=== PATIENT | female | born 1945 | race Hispanic/Latino ===

== ENCOUNTER 2016-11-16 10:30 | Emergency (ER) | payer BC, MEDICARE ==
[2016-11-16 11:12] LABS: Basophils % (Auto) 1.1 % (0.0-1.8); Eosinophils % (Auto) 5.3 % (0.0-4.3); Hematocrit 37.1 % (30.3-42.9); Hemoglobin 12.4 gm/dl (10.1-14.3); Mean Corpuscular HGB Conc 34 % (30-34); Mean Corpuscular Hemoglobin 31 pg (28-32); Mean Corpuscular Volume 91 fl (79-97); Platelet Count 257 K/mm3 (140-440); Red Blood Count 4.08 M/mm3 (3.65-5.03); Red Cell Distribution Width 13.4 % (13.2-15.2)
[2016-11-16 11:33] LABS: Anion Gap 15 mmol/L; Blood Urea Nitrogen 13 mg/dL (7-17); Calcium 9.6 mg/dL (8.4-10.2); Carbon Dioxide 28 mmol/L (22-30); Chloride 99.1 mmol/L (98-107); Glucose 126 mg/dL (65-100); Potassium 4.2 mmol/L (3.6-5.0); Sodium 138 mmol/L (137-145)
--- NOTE | 2016-11-16 12:46 | XRay Report ---
CHEST 2 VIEWS INDICATION: Shortness of breath. COMPARISON: None similar. FINDINGS: PA and lateral chest radiographs demonstrate normal cardiomediastinal silhouette. Clear lungs. Few degenerative changes, including mild thoracic levoscoliosis. CONCLUSION: No acute disease in the chest. Thank you for the opportunity to participate in this patient's care.
--- NOTE | 2016-11-16 14:17 | Emergency Department Report ---
ED Shortness of Breath HPI - General Chief Complaint: Dyspnea/Respdistress Stated Complaint: CARLO Time Seen by Provider: 11/16/16 11:55 Source: EMS Mode of arrival: Stretcher Limitations: No Limitations - History of Present Illness Initial Comments: 71 year old female with a past medical history of hypothyroidism and elevated cholesterol presents to the hospital complaints of sudden onset shortness of breath. Patient was outside playing with her dogs for about an hour and a half. She felt fine until she sat down to eat her breakfast and she has had onset of shortness of breath and shaking of her hands. Patient denied any chest pain, nausea, vomiting, or diaphoresis episode. Symptoms were constant and gradually improved after arrival to the ED. Patient states she feels fine now. She denies any recent cough, fever, calf tenderness, edema, recent travel , history of PE/DVT. Last stress test was within 5 years. Patient was scheduled to see Dr. Lowery vascular surgeries for possible Raynaud's syndrome since her fingers turning white at times. PMD: [facility] - Related Data Home Medications Medication Instructions Recorded Confirmed Last Taken Levothyroxine [Synthroid] 75 mcg PO QAM 11/16/16 11/16/16 11/16/16 Simvastatin [Zocor TAB] 20 mg PO DAILY 11/16/16 11/16/16 11/16/16 Allergies Allergy/AdvReac Type Severity Reaction Status Date / Time No Known Allergies Allergy Unverified 10/07/13 19:22 ED Review of Systems ROS: Stated complaint: CARLO Other details as noted in HPI Comment: All other systems reviewed and negative Other: Constitutional: No fevers chills Eyes: No eye pain visual changes ENT: No ear pain or throat pain Neck: Denies pain Respiratory: Denies cough wheezing Cardiovascular: Denies chest pain, palpitations, syncope GI: Denies abdominal pain, nausea, vomiting, diarrhea : Denies dysuria Musculoskeletal: Denies back pain Skin: Denies rash, lesions, erythema Neurologic: Denies headache, numbness, weakness Psychiatric: Denies suicidal ideation, hallucinations ED Past Medical Hx - Past Medical History Hx Hypertension: Yes Hx Diabetes: No Additional medical history: Hypothyroid - Surgical History Hx Cholecystectomy: Yes - Social History Smoking Status: Never Smoker - Medications Home Medications: Home Medications Medication Instructions Recorded Confirmed Last Taken Type Levothyroxine [Synthroid] 75 mcg PO QAM 11/16/16 11/16/16 11/16/16 History Simvastatin [Zocor TAB] 20 mg PO DAILY 11/16/16 11/16/16 11/16/16 History ED Physical Exam - General Limitations: No Limitations - Other Other exam information: General: No limitations, patient is alert in no acute distress Head exam: Atraumatic, normocephalic Eyes exam: Normal appearance ENT: Moist mucous membrane, normal oropharynx Neck exam: Normal inspection, full range of motion Respiratory exam: Clear to auscultation bilateral, no wheezes, rales, crackles Cardiovascular: Normal rate and rhythm, normal heart sounds Abdomen: Soft, nondistended, and nontender, with normal bowel sounds, no rebound, or guarding Extremity: Full range of motion normal inspection no deformity, no calf tenderness or edema Back: Normal Inspection, full range of motion, no tenderness Neurologic: Alert, oriented x3, cranial nerves intact, no motor or sensory deficit Psychiatric: normal affect, normal mood Skin: Warm, dry, intact ED Course Vital Signs 11/16/16 11/16/16 11/16/16 11:01 11:31 12:00 Pulse Rate 65 64 Respiratory 17 18 16 Rate Blood Pressure 132/67 O2 Sat by Pulse 99 99 Oximetry 11/16/16 11/16/16 11/16/16 12:31 13:01 13:31 Pulse Rate 66 67 Respiratory 20 12 Rate Blood Pressure 132/67 132/67 132/67 O2 Sat by Pulse 98 99 99 Oximetry 11/16/16 11/16/16 14:17 14:31 Pulse Rate Respiratory Rate Blood Pressure 132/67 139/76 O2 Sat by Pulse 99 97 Oximetry - Reevaluation(s) Reevaluation #1: 11/16/16 15:27 Patient continued to be asymptomatic in the ED ED Medical Decision Making - Lab Data Result diagrams: 11/16/16 10:56 11/16/16 10:56 Lab Results 11/16/16 11/16/16 11/16/16 Range/Units 10:56 10:56 12:11 WBC 8.0 (4.5-11.0) K/mm3 RBC 4.08 (3.65-5.03) M/mm3 Hgb 12.4 (10.1-14.3) gm/dl Hct 37.1 (30.3-42.9) % MCV 91 (79-97) fl MCH 31 (28-32) pg MCHC 34 (30-34) % RDW 13.4 (13.2-15.2) % Plt Count 257 (140-440) K/mm3 Lymph % (Auto) 31.9 (13.4-35.0) % Lea % (Auto) 7.5 H (0.0-7.3) % Eos % (Auto) 5.3 H (0.0-4.3) % Baso % (Auto) 1.1 (0.0-1.8) % Lymph # 2.5 (1.2-5.4) K/mm3 Lea # 0.6 (0.0-0.8) K/mm3 Eos # 0.4 (0.0-0.4) K/mm3 Baso # 0.1 (0.0-0.1) K/mm3 Seg Neutrophils % 54.2 (40.0-70.0) % Seg Neutrophils # 4.3 (1.8-7.7) K/mm3 D-Dimer 284.81 H (0-234) ng/mlDDU Sodium 138 (137-145) mmol/L Potassium 4.2 (3.6-5.0) mmol/L Chloride 99.1 (98-107) mmol/L Carbon Dioxide 28 (22-30) mmol/L Anion Gap 15 mmol/L BUN 13 (7-17) mg/dL Creatinine 0.5 L (0.7-1.2) mg/dL Estimated GFR > 60 ml/min BUN/Creatinine Ratio 26.00 % Glucose 126 H (65-100) mg/dL Calcium 9.6 (8.4-10.2) mg/dL Troponin T < 0.010 (0.00-0.029) ng/mL TSH (0.270-4.200) mlU/mL Free T4 (0.76-1.46) ng/dL 11/16/16 11/16/16 Range/Units 12:11 13:32 WBC (4.5-11.0) K/mm3 RBC (3.65-5.03) M/mm3 Hgb (10.1-14.3) gm/dl Hct (30.3-42.9) % MCV (79-97) fl MCH (28-32) pg MCHC (30-34) % RDW (13.2-15.2) % Plt Count (140-440) K/mm3 Lymph % (Auto) (13.4-35.0) % Lea % (Auto) (0.0-7.3) % Eos % (Auto) (0.0-4.3) % Baso % (Auto) (0.0-1.8) % Lymph # (1.2-5.4) K/mm3 Lea # (0.0-0.8) K/mm3 Eos # (0.0-0.4) K/mm3 Baso # (0.0-0.1) K/mm3 Seg Neutrophils % (40.0-70.0) % Seg Neutrophils # (1.8-7.7) K/mm3 D-Dimer (0-234) ng/mlDDU Sodium (137-145) mmol/L Potassium (3.6-5.0) mmol/L Chloride (98-107) mmol/L Carbon Dioxide (22-30) mmol/L Anion Gap mmol/L BUN (7-17) mg/dL Creatinine (0.7-1.2) mg/dL Estimated GFR ml/min BUN/Creatinine Ratio % Glucose (65-100) mg/dL Calcium (8.4-10.2) mg/dL Troponin T < 0.010 (0.00-0.029) ng/mL TSH 1.410 (0.270-4.200) mlU/mL Free T4 1.20 (0.76-1.46) ng/dL - EKG Data -: EKG Interpreted by Me (sinus rhythm rate 63, no stemi) - Radiology Data Radiology results: image reviewed (CT chest IV contrast: No PE. Atherosclerosis to the aortic arch. Small nonspecific history right lung base nodular density) - Medical Decision Making Patient offered admission to the hospital given her age and respiratory symptoms however, I think the overall patient's symptoms are atypical. EKG normal, cardiac enzymes negative 2, and the patient did not have any chest pain. Presenting symptom was shortness of breath and although she has a mildly elevated d-dimer her CT angiogram is negative. Patient does have arthrosclerosis of the aorta. She'll be encouraged to follow-up since she declines admission at this time. Explained the risks of impending heart attack which could lead to disability and . Patient states she prefers to go home. - Differential Diagnosis PE, anxiety, unstable angina, arrhythmia, pulmonary edema Critical Care Time: No Critical care attestation.: If time is entered above; I have spent that time in minutes in the direct care of this critically ill patient, excluding procedure time. ED Disposition Clinical Impression: Dyspnea, Atherosclerosis of aorta, Lung nodule < 6cm on CT Disposition: DISCHARGED TO HOME OR SELFCARE Is pt being admited?: No Does the pt Need Aspirin: No Condition: Stable Instructions: Dyspnea (ED) Additional Instructions: The cause of your shortness of breath episode was unidentified at this time. This could be due to anxiety. Heart disease was not ruled out today and therefore admission was recommended. You have declined admission at this time. Please return immediately if symptoms worsen. Your cat scan also shows a nonspecific nodule that needs outpatient follow-up and monitoring. You have been provided a copy of the CAT scan for outpatient follow-up. Referrals: PRIMARY CAREMD [Primary Care Provider] - 2-3 Days Time of Disposition: 15:31
[2016-11-16 14:40] VITALS: BP 139/76
--- NOTE | 2016-11-16 14:47 | Cat Scan Report ---
CTA CHEST INDICATION: Shortness of breath, d-dimer elevation. COMPARISON: 10/02/2012 FINDINGS: Chest CTA performed following intravenous administration of 100 cc of Omnipaque 350. Rotational MIP's also obtained. Normal heart size. No effusions. No aortic aneurysm, dissection or suspicious pulmonary arterial filling defects. Aortic arch atherosclerotic changes with calcifications and mild ectasia distally to approximately 3.1 cm caliber as on axial image 69, series 2 is unchanged. Proximal descending aortic caliber is 2.5 cm, axial image 92. No size significant adenopathy. Normal airway. Unremarkable thyroid. Well-expanded lungs with mild increased AP chest diameter/COPD. Mild biapical and left lower lobe scarring. Small 6 mm extreme right lung base nodular pleural based density as on axial image 109, series 2 is nonspecific, possibly atelectasis or scarring. Nonspecific distal esophageal wall prominence/thickening, not excluded for gastroesophageal reflux and/or hiatal hernia, amongst others. Images through included upper abdomen reveal no significant abnormality. Few mid to lower thoracic spine degenerative spurring and disc narrowing. CONCLUSION: No CT evidence of pulmonary embolism with few other incidental findings, including aortic arch atherosclerotic changes and a small nonspecific extreme right lung base nodular density, as above. Thank you for the opportunity to participate in this patient's care.
== END 2016-11-16 16:24 | disposition home or self-care (01) ==
LOC: ED 10:30
DX: R06.09 Other forms of dyspnea (principal); I70.0 Atherosclerosis of aorta; R91.8 Other nonspecific abnormal finding of lung field; I10 Essential (primary) hypertension; E05.90 Thyrotoxicosis, unspecified without thyrotoxic crisis or storm; Z90.49 Acquired absence of other specified parts of digestive tract
CPT/HCPCS: 36415; 71020; 71275; 80048; 84439; 84443; 84484; 85025; 85379; 93005; 93010; 99285; Q9967

== ENCOUNTER 2017-04-19 16:57 | Emergency (ER) | payer MEDICARE ==
--- NOTE | 2017-04-19 17:05 | Emergency Department Report ---
Stated Complaint: CARLO Time Seen by Provider: 04/19/17 17:02 - HPI History of Present Illness: Pt states 1 hr captain cannery tender, she felt sob and dizzy. PT states she has felt this way once before. - ROS Review of Systems: + dizziness + nausea - vomiting - Exam Physical Exam: PT is alert, appropriate, no acute resp distress steady gait gcs 15 MSE screening note: Focused history and physical exam performed. Due to findings the following was ordered: ekg, lab, xr ED Disposition for MSE Condition: Stable
[2017-04-19 20:46] LABS: Eosinophils % (Auto) 2.4 % (0.0-4.3); Hematocrit 36.1 % (30.3-42.9); Hemoglobin 12.4 gm/dl (10.1-14.3); Mean Corpuscular HGB Conc 34 % (30-34); Mean Corpuscular Hemoglobin 31 pg (28-32); Mean Corpuscular Volume 90 fl (79-97); Platelet Count 288 K/mm3 (140-440); Red Blood Count 4.01 M/mm3 (3.65-5.03); Red Cell Distribution Width 13.4 % (13.2-15.2); White Blood Count 9.5 K/mm3 (4.5-11.0)
[2017-04-19 20:56] LABS: INR 0.9 (0.87-1.13); Partial Thromboplastin Time 29.2 Sec. (24.2-36.6)
[2017-04-19 21:07] LABS: Alanine Aminotransferase 21 units/L (7-56); Albumin 4.2 g/dL (3.9-5); Albumin/Globulin Ratio 1.2 %; Alkaline Phosphatase 94 units/L (35-129); Anion Gap 20 mmol/L; BUN/Creatinine Ratio 17; Blood Urea Nitrogen 10 mg/dL (7-17); Calcium 8.9 mg/dL (8.4-10.2); Carbon Dioxide 23 mmol/L (22-30); Glucose 112 mg/dL (65-100); Sodium 132 mmol/L (137-145); Total Protein 7.7 g/dL (6.3-8.2)
[2017-04-20] MEDS ORDERED: NACL 0.9% 250ML 250 ML IV ONE (00:20)
--- NOTE | 2017-04-20 00:24 | Emergency Department Report ---
ED General Adult HPI - General Chief complaint: Chest Pain Stated complaint: CARLO Time Seen by Provider: 04/19/17 17:02 Source: patient, RN notes reviewed, old records reviewed Mode of arrival: Ambulatory Limitations: No Limitations - History of Present Illness Initial comments: This is a 71-year-old female, the patient is previously unknown to this provider , patient reports a past medical history of hypertension, hypothyroidism, "anxiety." Patient is brought to the hospital by EMS for evaluation of shortness of breath. Patient reports that she has been having shortness of breath for over a year. Her shortness of breath is not any new, worsening or different today. She reports that her friend contacted 911 "because he didn't like the way that was breathing." There is no leg pain, there is no leg swelling, no recent trips greater than 4 hours, no recent hospital admissions. Patient does report that she has "major anxiety." Patient seen in this hospital November 2016 for similar symptoms, had a CT scan of the chest which suggested COPD/emphysema. The patient reports that if her friend had not contacted 911, she would not have sought emergent medical attention. -: Gradual, month(s) Consistency: intermittent Improves with: none Worsens with: none Associated Symptoms: shortness of breath. denies: confusion, chest pain, cough , loss of appetite, malaise, nausea/vomiting - Related Data Home Medications Medication Instructions Recorded Confirmed Last Taken Levothyroxine [Synthroid] 75 mcg PO QAM 11/16/16 11/16/16 11/16/16 Simvastatin [Zocor TAB] 20 mg PO DAILY 11/16/16 11/16/16 11/16/16 Allergies Allergy/AdvReac Type Severity Reaction Status Date / Time No Known Allergies Allergy Unverified 10/07/13 19:22 ED Review of Systems ROS: Stated complaint: CARLO Other details as noted in HPI Constitutional: malaise. denies: fever, weakness Eyes: denies: vision change Respiratory: shortness of breath Cardiovascular: denies: chest pain Gastrointestinal: abdominal pain Genitourinary: denies: dysuria Musculoskeletal: denies: back pain Skin: denies: lesions Neurological: weakness Psychiatric: anxiety. denies: auditory hallucinations, visual hallucinations, homicidal thoughts, suicidal thoughts ED Past Medical Hx - Past Medical History Previous Medical History?: Yes Hx Hypertension: Yes Hx Diabetes: No Additional medical history: Hypothyroid - Surgical History Past Surgical History?: Yes Hx Cholecystectomy: Yes - Social History Smoking Status: Never Smoker Substance Use Type: None - Medications Home Medications: Home Medications Medication Instructions Recorded Confirmed Last Taken Type Levothyroxine [Synthroid] 75 mcg PO QAM 11/16/16 11/16/16 11/16/16 History Simvastatin [Zocor TAB] 20 mg PO DAILY 11/16/16 11/16/16 11/16/16 History ED Physical Exam - General Limitations: No Limitations General appearance: alert, anxious - Head Head exam: Present: atraumatic, normocephalic - Eye Eye exam: Present: normal appearance, EOMI. Absent: nystagmus - ENT ENT exam: Present: normal exam, normal orophraynx, mucous membranes moist, normal external ear exam - Neck Neck exam: Present: normal inspection - Respiratory Respiratory exam: Present: normal lung sounds bilaterally. Absent: respiratory distress, wheezes, rales, rhonchi, stridor, chest wall tenderness, accessory muscle use, decreased breath sounds, prolonged expiratory - Cardiovascular Cardiovascular Exam: Present: regular rate, normal rhythm, systolic murmur ( there is a 2/6 systolic murmur, appreciated best in the right and left second intercostal space. It does not radiate to the carotids). Absent: bradycardia, diastolic murmur, rubs, gallop - GI/Abdominal GI/Abdominal exam: Present: soft, normal bowel sounds. Absent: distended, tenderness, guarding, rebound, rigid, pulsatile mass - Extremities Exam Extremities exam: Present: normal inspection, full ROM, normal capillary refill. Absent: pedal edema, joint swelling, calf tenderness - Back Exam Back exam: Present: normal inspection, full ROM, other (2+ pulses noted in the bilateral upper and lower extremities.). Absent: tenderness, CVA tenderness (R) , CVA tenderness (L), muscle spasm, paraspinal tenderness, vertebral tenderness - Neurological Exam Neurological exam: Present: alert, oriented X3, normal gait, other (Extraocular movements intact. Tongue midline. No facial droop. Facial sensation intact to light touch in the V1, V2, V3 distribution bilaterally. 5 and 5 strength in 4 extremities.. Sensation is intact to light touch in 4 extremities.). Absent : motor sensory deficit - Psychiatric Psychiatric exam: Present: normal affect, normal mood - Skin Skin exam: Present: warm, dry, intact, normal color. Absent: rash ED Course Vital Signs 04/19/17 04/20/17 04/20/17 17:47 01:30 02:00 Temperature 97.7 F Pulse Rate 72 62 Respiratory 22 18 20 Rate Blood Pressure 172/85 Blood Pressure 149/72 [Right] O2 Sat by Pulse 98 100 100 Oximetry - Reevaluation(s) Reevaluation #1: 04/20/17 00:52 Differential diagnosis: Emphysema, pulmonary hypertension, aortic stenosis, acute coronary syndrome, pneumonia, pulmonary embolus, anxiety, assessment and plan: 71-year-old female with 6-12 months of shortness of breath. She is afebrile, with reassuring vital signs, a GCS of 15, with an anion score of 0, is clinically sober, no pulmonary embolus or DVT risk factors , low risk by well's criteria, low risk by LOW score, low risk by heart score. I appreciate the patient's CT scan results from November 2014, chest x-ray today looks somewhat abnormal in the right hemithorax/right medial mediastinum, we'll obtain CT scan of the chest to exclude developing disease. However, I have a low probability for serious disease, and if CT scan does not demonstrate any significant disease, would discharge patient to follow up with outpatient primary care, pulmonology, and cardiology. Reevaluation #2: 04/20/17 01:39 CT scan negative for acute disease. Chronic findings noted. Vital signs stable. Patient wants to eat. She'll be discharged. ED Medical Decision Making - Lab Data Result diagrams: 04/19/17 17:26 04/19/17 17:26 - EKG Data 04/20/17 01:39 Normal sinus, 67 bpm, normal intervals, normal axis, not morphologically consistent with STEMI. - Radiology Data Radiology results: report reviewed, image reviewed interpreted by me: X-ray the chest demonstrates abnormality in the right mediastinum, may be related to artifact, CT scan of the chest pending, otherwise no acute CT scan of the chest is negative for acute disease, chronic right lower lung nodule is noted Critical care attestation.: If time is entered above; I have spent that time in minutes in the direct care of this critically ill patient, excluding procedure time. ED Disposition Clinical Impression: Dyspnea Disposition: DC-01 TO HOME OR SELFCARE Is pt being admited?: No Does the pt Need Aspirin: No Condition: Stable Instructions: Aortic Stenosis (ED), Chronic Obstructive Pulmonary Disease (ED) Additional Instructions: Continue current outpatient medications. Follow up with the lung specialist, Dr. Martinez, within the next 5-6 weeks. Follow up with either of the listed cardiology groups for the cardiac murmur (most likely aortic stenosis) within the next month. Return to the ER readily with fevers, chills, lethargy, irritability, projectile vomiting, change in mental status, confusion, inability to tolerate liquid feeds. CT scan of the chest demonstrated findings consistent with emphysema/bronchitis, and a right lower lung nodule. Make certain to follow-up with either primary care or clinic specialist for this nodule, not following up as recommended may result in an undiagnosed tumor/ cancer/malignancy. Referrals: PRIMARY CAREMD [Primary Care Provider] - 3-5 Days [facility] [Provider Group] - 3-5 Days [facility] [Provider Group] - 3-5 Days MELANIA MATTHEWS MD [Staff Physician] - 3-5 Days
[2017-04-20] MEDS ORDERED: NACL ONE (00:49)
--- NOTE | 2017-04-20 01:28 | Cat Scan Report ---
FINAL REPORT EXAM: CT ANGIO CHEST HISTORY: dyspnea TECHNIQUE: A CT angiogram was performed following intravenous injection of 100 cc of Omnipaque 350. MIP reconstructions were obtained in multiple planes. Comparison is made study of 11/16/2016. FINDINGS: There is no evidence of pulmonary embolus or pulmonary vascular congestion. The heart size is normal. There is no evidence of adenopathy. The thoracic aorta reveals mild ectasia. Pleural fluid is not seen. The lungs otherwise reveal minimal dependent atelectasis in the right lower lobe. There is a stable 6 millimeter nodule in the posterior aspect of the right lung base. There are no new nodules. In the upper abdomen there is a small hiatal hernia. At the thoracic inlet the thyroid gland appears normal. The skeletal structures reveal multilevel disc degeneration in the thoracic spine. IMPRESSION: No evidence of pulmonary embolus or pulmonary vascular congestion. Very mild dependent atelectasis in the right lower lobe with stable 6 millimeter nodule posteriorly in the right lower lobe. Small hiatal hernia.
[2017-04-20 01:31] VITALS: BP 149/72
--- NOTE | 2017-04-20 09:05 | XRay Report ---
ROUTINE CHEST, TWO VIEWS: HISTORY: Dyspnea. The trachea, heart, mediastinal contour, lung marquez and bony thorax are unremarkable. IMPRESSION: No acute cardiopulmonary process. No significant change since 11/16/16.
== END 2017-04-20 02:01 | disposition home or self-care (01) ==
LOC: ED 16:57
DX: R06.00 Dyspnea, unspecified (principal); I10 Essential (primary) hypertension; E03.9 Hypothyroidism, unspecified
CPT/HCPCS: 36415; 71020; 71275; 80053; 83880; 84484; 85025; 85610; 85730; 93005; 93010; 99285; J7050; Q9967

== ENCOUNTER 2017-04-21 22:42 | Emergency (ER) | payer MEDICARE ==
[2017-04-22 01:19] LABS: Anion Gap 20 mmol/L; BUN/Creatinine Ratio 23; Blood Urea Nitrogen 16 mg/dL (7-17); Calcium 9.2 mg/dL (8.4-10.2); Carbon Dioxide 24 mmol/L (22-30); Chloride 99.5 mmol/L (98-107); Glucose 99 mg/dL (65-100); Potassium 4.1 mmol/L (3.6-5.0); Sodium 139 mmol/L (137-145)
[2017-04-22 01:32] LABS: Basophils % (Auto) 1.2 % (0.0-1.8); Eosinophils % (Auto) 3.9 % (0.0-4.3); Hematocrit 36.1 % (30.3-42.9); Hemoglobin 12.4 gm/dl (10.1-14.3); Mean Corpuscular HGB Conc 34 % (30-34); Mean Corpuscular Hemoglobin 31 pg (28-32); Mean Corpuscular Volume 91 fl (79-97); Platelet Count 309 K/mm3 (140-440); Red Blood Count 3.99 M/mm3 (3.65-5.03); Red Cell Distribution Width 13.4 % (13.2-15.2); White Blood Count 10.4 K/mm3 (4.5-11.0)
[2017-04-22 01:42] LABS: Urine Drugs of Abuse Note Disclamer
[2017-04-22 01:58] LABS: Bacteria,Urine 1+ /HPF (Negative); Bilirubin,Urine NEG (Negative); Blood,Urine SM (Negative); Ketones,Urine NEG (Negative); Leukocyte Esterase,Urine NEG (Negative); Nitrite,Urine NEG (Negative); Protein,Urine <15 mg/dL mg/dL (Negative); Urobilinogen,Urine < 2.0 mg/dL (<2.0)
[2017-04-22 02:04] LABS: RBC,Urine < 1.0 /HPF (0.0-6.0)
[2017-04-22 08:23] VITALS: BP 159/80
--- NOTE | 2017-04-22 11:14 | Emergency Department Report ---
HPI - General Chief Complaint: Psych Time Seen by Provider: 04/22/17 11:02 - HPI HPI: Room 16 The patient is a 71-year-old female presenting with a chief complaint of anxiety. The patient states for the past month or 2 she is suffer from anxiety saying that she gets "real upset about things." Patient states "too many things were changing." The patient states she suffers from anxiety intermittently for the past month or 2. Patient denies suicidal or homicidal ideation. Patient denies auditory or visual hallucinations. When asked how she is feeling currently patient replies "I'm fine." Location: Mental state Duration: Intermittent 1-2 months Quality: Anxiety Severity: Moderate Modifying factors: [see above] Context: [see above] Mode of transportation: Unknown ED Past Medical Hx - Past Medical History Previous Medical History?: Yes Hx Hypertension: Yes Additional medical history: Hypothyroid - Surgical History Past Surgical History?: Yes Hx Cholecystectomy: Yes - Family History Family history: no significant - Social History Smoking Status: Former Smoker (none since 1995) Substance Use Type: None (denies illicit drug use) - Medications Home Medications: Home Medications Medication Instructions Recorded Confirmed Last Taken Type Levothyroxine [Synthroid] 75 mcg PO QAM 11/16/16 11/16/16 11/16/16 History Simvastatin [Zocor TAB] 20 mg PO DAILY 11/16/16 11/16/16 11/16/16 History hydrOXYzine PAMOATE [Vistaril] 25 mg PO Q6HR PRN #10 capsule 04/22/17 Unknown Rx ED Review of Systems ROS: Stated complaint: ABD PAIN Other details as noted in HPI Comment: All other systems reviewed and negative Constitutional: denies: chills, fever Eyes: denies: eye pain, eye discharge, vision change ENT: denies: ear pain, throat pain Respiratory: denies: cough, shortness of breath, wheezing Cardiovascular: denies: chest pain, palpitations Endocrine: no symptoms reported Gastrointestinal: denies: abdominal pain, nausea, diarrhea Genitourinary: denies: urgency, dysuria, discharge Musculoskeletal: denies: back pain, joint swelling, arthralgia Skin: denies: rash, lesions Neurological: denies: headache, weakness, paresthesias Psychiatric: anxiety. denies: auditory hallucinations, visual hallucinations, homicidal thoughts, suicidal thoughts Hematological/Lymphatic: denies: easy bleeding, easy bruising Physical Exam - Physical Exam Vital Signs: Vital Signs 04/22/17 04/22/17 04/22/17 00:10 06:25 08:22 Temperature 98.8 F 98.4 F 98.1 F Pulse Rate 71 70 71 Respiratory 18 16 16 Rate Blood Pressure 184/87 175/76 159/80 O2 Sat by Pulse 99 100 Oximetry Physical Exam: GENERAL: The patient is well-developed well-nourished female sitting on stretcher not appearing to be in acute distress. [] HEENT: Normocephalic. Atraumatic. Extraocular motions are intact. Patient has moist mucous membranes. NECK: Supple. No meningitic signs are noted. Trachea midline CHEST/LUNGS: Clear to auscultation. There is no respiratory distress noted. HEART/CARDIOVASCULAR: Regular. There is no tachycardia. There is no gallop rub or murmur. ABDOMEN: Abdomen is soft, nontender. Patient has normal bowel sounds. There is no abdominal distention. SKIN: There is no rash. There is no edema. There is no diaphoresis. NEURO: The patient is awake, alert, and oriented. The patient is cooperative. The patient has no focal neurologic deficits. The patient has normal speech. Cranial nerves II through XII grossly intact, no drift MUSCULOSKELETAL: There is no evidence of acute injury. ED Course Vital Signs 04/22/17 04/22/17 04/22/17 00:10 06:25 08:22 Temperature 98.8 F 98.4 F 98.1 F Pulse Rate 71 70 71 Respiratory 18 16 16 Rate Blood Pressure 184/87 175/76 159/80 O2 Sat by Pulse 99 100 Oximetry - Consultations Consultation #1: 04/22/17 11:30 Case discussed with mental health data warehouse consultant-no indication for inpatient management. Can follow-up as outpatient ED Medical Decision Making - Lab Data Result diagrams: 04/22/17 01:05 04/22/17 00:17 Laboratory Tests 04/22/17 04/22/17 04/22/17 00:17 00:17 00:17 WBC RBC Hgb Hct MCV MCH MCHC RDW Plt Count Lymph % (Auto) Parker % (Auto) Eos % (Auto) Baso % (Auto) Lymph # Parker # Eos # Baso # Seg Neutrophils % Seg Neutrophils # Sodium 139 D Potassium 4.1 Chloride 99.5 Carbon Dioxide 24 Anion Gap 20 BUN 16 Creatinine 0.7 Estimated GFR > 60 BUN/Creatinine Ratio 23 Glucose 99 Calcium 9.2 TSH 5.900 H Thyroxine (T4) 10.7 Urine Color Urine Turbidity Urine pH Ur Specific White Urine Protein Urine Glucose (UA) Urine Ketones Urine Blood Urine Nitrite Urine Bilirubin Urine Urobilinogen Ur Leukocyte Esterase Urine WBC (Auto) Urine RBC (Auto) Urine Bacteria (Auto) Urine Opiates Screen Urine Methadone Screen Ur Barbiturates Screen Ur Phencyclidine Scrn Ur Amphetamines Screen U Benzodiazepines Scrn Urine Cocaine Screen U Marijuana (THC) Screen Drugs of Abuse Note Plasma/Serum Alcohol 04/22/17 04/22/17 04/22/17 00:17 01:05 01:20 WBC 10.4 RBC 3.99 Hgb 12.4 Hct 36.1 MCV 91 MCH 31 MCHC 34 RDW 13.4 Plt Count 309 Lymph % (Auto) 32.4 Parker % (Auto) 9.5 H Eos % (Auto) 3.9 Baso % (Auto) 1.2 Lymph # 3.4 Parker # 1.0 H Eos # 0.4 Baso # 0.1 Seg Neutrophils % 53.0 Seg Neutrophils # 5.5 Sodium Potassium Chloride Carbon Dioxide Anion Gap BUN Creatinine Estimated GFR BUN/Creatinine Ratio Glucose Calcium TSH Thyroxine (T4) Urine Color Red Urine Turbidity Clear Urine pH 5.0 Ur Specific White 1.004 Urine Protein <15 mg/dl Urine Glucose (UA) Neg Urine Ketones Neg Urine Blood Sm Urine Nitrite Neg Urine Bilirubin Neg Urine Urobilinogen < 2.0 Ur Leukocyte Esterase Neg Urine WBC (Auto) 1.0 Urine RBC (Auto) < 1.0 Urine Bacteria (Auto) 1+ Urine Opiates Screen Urine Methadone Screen Ur Barbiturates Screen Ur Phencyclidine Scrn Ur Amphetamines Screen U Benzodiazepines Scrn Urine Cocaine Screen U Marijuana (THC) Screen Drugs of Abuse Note Plasma/Serum Alcohol < 0.01 04/22/17 01:20 WBC RBC Hgb Hct MCV MCH MCHC RDW Plt Count Lymph % (Auto) Parker % (Auto) Eos % (Auto) Baso % (Auto) Lymph # Parker # Eos # Baso # Seg Neutrophils % Seg Neutrophils # Sodium Potassium Chloride Carbon Dioxide Anion Gap BUN Creatinine Estimated GFR BUN/Creatinine Ratio Glucose Calcium TSH Thyroxine (T4) Urine Color Urine Turbidity Urine pH Ur Specific White Urine Protein Urine Glucose (UA) Urine Ketones Urine Blood Urine Nitrite Urine Bilirubin Urine Urobilinogen Ur Leukocyte Esterase Urine WBC (Auto) Urine RBC (Auto) Urine Bacteria (Auto) Urine Opiates Screen Presumptive negative Urine Methadone Screen Presumptive negative Ur Barbiturates Screen Presumptive negative Ur Phencyclidine Scrn Presumptive negative Ur Amphetamines Screen Presumptive negative U Benzodiazepines Scrn Presumptive negative Urine Cocaine Screen Presumptive negative U Marijuana (THC) Screen Presumptive negative Drugs of Abuse Note Disclamer Plasma/Serum Alcohol - EKG Data -: EKG Interpreted by Me EKG shows normal: sinus rhythm Rate: normal - EKG Data When compared to previous EKG there are: no significant change Interpretation: unchanged when compared t (04/19/2017) - Differential Diagnosis anxiety, adjustment disorder Critical care attestation.: If time is entered above; I have spent that time in minutes in the direct care of this critically ill patient, excluding procedure time. ED Disposition Clinical Impression: Anxiety Disposition: DC-01 TO HOME OR SELFCARE Is pt being admited?: No Does the pt Need Aspirin: No Condition: Stable Instructions: Anxiety (ED) Additional Instructions: Return to the emergency department immediately should you develop worsening symptoms, fever, inability to tolerate food or liquid or any other concerns. Prescriptions: hydrOXYzine PAMOATE [Vistaril] 25 mg PO Q6HR PRN #10 capsule PRN Reason: Anxiety Referrals: GAURAV ARITA MD [Primary Care Provider] - 3-5 Days [facility] [Outside] - 3-5 Days Time of Disposition: 11:30
== END 2017-04-22 12:10 | disposition home or self-care (01) ==
LOC: ED 22:42
DX: F41.9 Anxiety disorder, unspecified (principal); I10 Essential (primary) hypertension; E03.9 Hypothyroidism, unspecified; Z87.891 Personal history of nicotine dependence
CPT/HCPCS: 36415; 80048; 80307; 81001; 84436; 84443; 85025; 93005; 93010; 99284; G0480; 80320